=== PATIENT | female | born 1950 | race Two or more races ===

== ENCOUNTER 2020-05-17 10:23 | Outpatient (CLI) | payer OTHER ==
[~2020-05-17 10:23] MED LIST: DICLOFENAC POTA50 MG PO; MELOXICAM15 MG PO
== END 2020-05-17 10:56 | disposition home or self-care (01) ==
LOC: SONOGRAMA 10:23
PROVIDERS: ATTEND Pathology Anatomic Pathology & Clinical Pathology
DX: D34 Benign neoplasm of thyroid gland (principal); E04.8 Other specified nontoxic goiter; E04.2 Nontoxic multinodular goiter

== ENCOUNTER 2022-04-15 11:44 | Outpatient (CLI) | payer OTHER ==
[~2022-04-15 11:44] MED LIST changes: +CELEBREX200MG PO; +NORFLEX100MG PO
== END 2022-04-15 11:46 | disposition home or self-care (01) ==
LOC: LAB 11:44
PROVIDERS: ATTEND Family Medicine
DX: A49.3 Mycoplasma infection, unspecified site (principal)

== ENCOUNTER 2022-12-29 23:43 | Emergency (ER) | payer OTHER ==
[~2022-12-29] VITALS: Ht 162.6 cm; Wt 59.0 kg
[2022-12-30] MEDS ORDERED: EZALLOR SPRINKLE5 MG PO (00:16)
[2022-12-30] MEDS ORDERED: SYNTHROID50 MCG PO (00:17)
== END 2022-12-30 03:19 | disposition home or self-care (01) ==
LOC: ER 23:43
DX: K52.89 Other specified noninfective gastroenteritis and colitis (principal); Z88.8 Allergy status to other drugs, medicaments and biological substances